=== PATIENT | female | born 1945 ===

== ENCOUNTER 2017-11-18 14:06 | Inpatient (IN) ==
[2017-11-18] MEDS ORDERED: cefOXitin 2,000 MG in SYRINGE 1 EACH IV ONE (15:09)
[2017-11-18] MEDS ORDERED: BUPIVACAINE 0.25% /EPI 10 ML VIAL ONE (15:19)
[2017-11-18] MEDS ORDERED: LIDOCAINE 1%/EPI INJ 20 ML VIAL ONE (15:20)
[2017-11-18] MEDS ORDERED: ONDANSETRON 4 MG/2 ML VIAL IV PRN (15:42)
[2017-11-18] MEDS ORDERED: ACETAMINOPHEN 325 MG TABLET PO PRN (15:42)
[2017-11-18] MEDS ORDERED: MORPHINE 4 MG/1 ML VIAL IV PRN (15:42)
[2017-11-18 15:46] LABS: PT Patient Result 10.6 SECS; Partial Thromboplastin Time 29.2 SECS (0-40)
[2017-11-18] MEDS ORDERED: PROPOFOL 200 MG/20 ML VIAL IV ONE (16:53)
[2017-11-18] MEDS ORDERED: ONDANSETRON 4 MG/2 ML VIAL ONE (16:54)
[2017-11-18] MEDS ORDERED: GLYCOPYRROLATE 0.4 MG/2 ML VIAL ONE (16:54)
[2017-11-18] MEDS ORDERED: ROCURONIUM 100 MG/10 ML VIAL IV ONE (16:54)
[2017-11-18] MEDS ORDERED: MIDAZOLAM 2 MG/2 ML VIAL ONE (16:54)
[2017-11-18] MEDS ORDERED: fentaNYL 100 MCG/2 ML VIAL ONE (16:54)
[2017-11-18] MEDS ORDERED: DESFLURANE 1 UNIT/15 MINUTE INH ONE (16:55)
[2017-11-18] MEDS ORDERED: NEOSTIGMINE 10 MG/10 ML VIAL ONE (16:55)
[2017-11-18 17:44] LABS: Apearance,Urine CLEAR (Clear); Bilirubin,Urine Negative (Negative); Blood, Urine Negative (Negative); Glucose,Urine (UA) Negative (Negative); Ketones,Urine 20 mg/dL (Negative); Mucus,Urine Occasional /LPF (Occasional); Nitrite,Urine Negative (Negative); Protein,Urine Negative; RBC,Urine <1 /HPF (0-4); Urine Color Yellow (Yellow); Urine Specific Gravity 1.009 (1.001-1.035); Urine Urobilinogen < 2.0 EU/DL (0.2-1.0); WBC,Urine 2 /HPF (0-6)
[2017-11-18] MEDS: POTASSIUM CHLORIDE INJ 20 MEQ in LACTATED RINGERS 1,000 ML IV SCH (21:33)
[2017-11-18] MEDS: cefOXitin 2,000 MG in SYRINGE 1 EACH IV SCH (21:45)
[2017-11-19] MEDS: POTASSIUM CHLORIDE INJ 20 MEQ in LACTATED RINGERS 1,000 ML IV SCH ×2 (02:56→14:51)
[2017-11-19] MEDS: cefOXitin 2,000 MG in SYRINGE 1 EACH IV SCH ×3 (03:00→09:49)
[2017-11-19 06:30] LABS: Basophils % 0.1 % (0.0-0.8); Eosinophils # 0.1 10*3/uL (0.0-0.87); Eosinophils % 0.9 % (0.00-10.9); Hematocrit 37.6 VOL% (35.7-47.0); Hemoglobin 12.4 GM/DL (12.0-16.0); Immature Granulocytes % 0.4 %; Immature Granulocytes Absolute 0.03 #; Lymphocytes # 1.5 10*3/uL (1.4-4.0); Lymphocytes % 20.2 % (21.3-54.2); Mean Corpuscular Hemoglobin 30 PG (27-34); Mean Corpuscular Volume 90.8 FL (87-102); Mean Platelet Volume 10.7 FL (9.6-12.0); Monocytes # 0.6 10*3/uL (0.11-0.8); Monocytes % 8.6 % (1.7-12.7); Neutrophils # 5.2 10*3/uL (1.4-7.4); Neutrophils % 69.8 % (38.7-73.9); Platelet Count 166 T/CUMM (130-400); Red Blood Count 4.14 MC/CUMM (3.8-5.5); Red Cell Distribution Width 13.4 % (9.3-17.3); White Blood Count 7.4 T/CUMM (4-12)
[2017-11-19 06:59] LABS: Albumin 2.9 G/DL (3.4-5.0); Bilirubin,Total 0.7 MG/DL (0.2-1.0); Osmolality,Calculated 282.8 MOS/KG (273-304); Total Protein 6.3 G/DL (6.4-8.3)
[2017-11-19] MEDS ORDERED: POTASSIUM CHLORIDE RIDER 10 MEQ in PREMIX 1 EACH IV PRN (08:23)
[2017-11-19] MEDS ORDERED: PANTOPRAZOLE 40 MG VIAL IV SCH (09:00)
[2017-11-19] MEDS: POTASSIUM CHLORIDE 20 MEQ TABLET PO PRN ×2 (13:57→15:42)
[2017-11-19] MEDS: ENOXAPARIN 40 MG/0.4 ML SYRINGE SUBCUT SCH (13:57)
[2017-11-19] MEDS: ASPIRIN EC 81 MG TABLET PO SCH (15:42)
[2017-11-19] MEDS: amLODIPine 10 MG TABLET PO SCH (15:42)
[2017-11-19] MEDS: POTASSIUM CHLORIDE 20 MEQ TABLET PO SCH (20:51)
[2017-11-20 06:02] LABS: Calcium 8.6 MG/DL (8.5-10.1); Osmolality,Calculated 285.7 MOS/KG (273-304); Potassium 3.7 MMOL/L (3.5-5.1)
[2017-11-20] MEDS ORDERED: PANTOPRAZOLE 40 MG TABLET PO SCH (09:00)
[2017-11-20 09:11] VITALS: BP 133/56
[2017-11-20] MEDS: ASPIRIN EC 81 MG TABLET PO SCH (09:14)
[2017-11-20] MEDS: POTASSIUM CHLORIDE 20 MEQ TABLET PO SCH (09:14)
[2017-11-20] MEDS: amLODIPine 10 MG TABLET PO SCH (09:14)
[2017-11-20] MEDS: CYANOCOBALAMIN 1000 MCG/1 ML VIAL IM SCH ×2 (09:16→12:13)
[2017-11-20] MEDS: ENOXAPARIN 40 MG/0.4 ML SYRINGE SUBCUT SCH (12:14)
== END 2017-11-20 12:03 | disposition left against medical advice (07) | DRG 354 ==
LOC: EDBD → EDUNIT# → N.ED 14:06 → N.SDSINP 15:40 → N.5E 17:26
PROVIDERS: ADMIT Surgery; ATTEND Surgery